=== PATIENT | male | born 1975 | race Caucasian/White ===

== ENCOUNTER 2020-01-06 17:11 | Outpatient (CLI) | payer OTHER, SELFPAY ==
[2020-01-06 18:06] LABS: Alanine Aminotransferase 12 U/L (4-50); Albumin Level 4.3 g/dL (3.5-5.1); Alkaline Phosphatase 113 U/L (38-126); Aspartate Amino Transferase 18 U/L (17-59); Bilirubin,Total 0.5 mg/dL (0.2-1.3); Blood Urea Nitrogen 13 mg/dL (9-20); Calcium 8.7 mg/dL (8.4-10.2); Carbon Dioxide 26 mmol/L (22-30); Chloride 101 mmol/L (98-107); Estimated Glomerular Filt Rate > 60; Glucose 236 mg/dL (75-110); Potassium 4.3 mmol/L (3.4-5.0); Sodium 136 mmol/L (137-145)
== END 2020-01-06 17:12 | disposition home or self-care (01) ==
PROVIDERS: PCP Family Medicine; Visit Provider Family Medicine
DX: R73.01 Impaired fasting glucose (principal); I10 Essential (primary) hypertension
CPT/HCPCS: 36415; 80053; 83036

== ENCOUNTER 2020-04-20 14:30 | Outpatient (RCR) | payer OTHER, SELFPAY ==
[2020-02-17 10:29] VITALS: BMI 34.4
== END 2020-04-28 10:45 | disposition home or self-care (01) ==
LOC: ANHDMC 14:30
PROVIDERS: PCP Family Medicine; Visit Provider Family Medicine
DX: E11.65 Type 2 diabetes mellitus with hyperglycemia (principal); Z71.3 Dietary counseling and surveillance; Z71.89 Other specified counseling
CPT/HCPCS: 97802; G0108

== ENCOUNTER 2020-08-15 11:23 | Outpatient (CLI) | payer OTHER, SELFPAY ==
[2020-08-15 11:52] LABS: Hemoglobin A1C 5.4 % (<5.7)
[2020-08-15 11:53] LABS: Alanine Aminotransferase 9 U/L (4-50); Albumin Level 4.2 g/dL (3.5-5.1); Alkaline Phosphatase 88 U/L (38-126); Anion Gap 6 mmol/L (8-16); Aspartate Amino Transferase 16 U/L (17-59); Bilirubin,Total 0.6 mg/dL (0.2-1.3); Blood Urea Nitrogen 12 mg/dL (9-20); Calcium 9.3 mg/dL (8.4-10.2); Carbon Dioxide 31 mmol/L (22-30); Chloride 104 mmol/L (98-107); Estimated Glomerular Filt Rate > 60; Glucose 143 mg/dL (75-110); Potassium 4.6 mmol/L (3.4-5.0); Sodium 141 mmol/L (137-145)
== END 2020-08-15 11:24 | disposition home or self-care (01) ==
LOC: ANHLAB 11:24
PROVIDERS: PCP Family Medicine; Visit Provider Family Medicine
DX: E11.9 Type 2 diabetes mellitus without complications (principal); I10 Essential (primary) hypertension
CPT/HCPCS: 36415; 80053; 83036

== ENCOUNTER 2021-05-09 16:04 | Outpatient (CLI) | payer OTHER, SELFPAY ==
[2021-05-09 16:42] LABS: Basophils Absolute Auto 0.1 K/mm3 (0.0-0.1); Basophils Percent Auto 0.6 % (0.2-1.2); Eosinophils Absolute Auto 0.1 K/mm3 (0-0.3); Eosinophils Percent Auto 0.6 % (0-4.4); Hematocrit 49.6 % (42.0-52.0); Hemoglobin 17.1 g/dL (14.0-18.0); Immature Granulocyte Absolute 0.03 K/mm3 (0.00-0.031); Immature Granulocyte Percent A 0.3 % (0-0.5); Lymphocytes Absolute Auto 3.06 K/mm3 (0.9-3.2); Lymphocytes Percent Auto 29.4 % (18.3-44.2); Mean Corpuscular HGB Conc 34.5 g/dl (32-36); Mean Corpuscular Hemoglobin 32.4 pg (26-34); Mean Corpuscular Volume 94.1 fl (80-100); Mean Platelet Volume 10.2 fl (7.4-10.4); Monocytes Absolute Auto 0.5 K/mm3 (0.1-0.6); Monocytes Percent Auto 4.6 % (2.6-8.5); Neutrophils Absolute Auto 6.7 K/mm3 (1.3-6.7); Neutrophils Percent Auto 64.5 % (45.5-73.1); Platelet Count Result 187 k/mm3 (150-375); Red Blood Count 5.27 M/mm3 (4.6-6.20); Red Cell Distribution Width 12.6 % (11.5-14.5); White Blood Count 10.4 K/mm3 (4.5-10.0)
[2021-05-09 17:10] LABS: Alanine Aminotransferase 13 U/L (4-50); Albumin Level 4.7 g/dL (3.5-5.1); Alkaline Phosphatase 102 U/L (38-126); Anion Gap 10 mmol/L (8-16); Aspartate Amino Transferase 21 U/L (17-59); Bilirubin,Total 0.7 mg/dL (0.2-1.3); Blood Urea Nitrogen 12 mg/dL (9-20); Calcium 9.1 mg/dL (8.4-10.2); Carbon Dioxide 24 mmol/L (22-30); Chloride 105 mmol/L (98-107); Cholesterol 179 mg/dL (0-200); Estimated Glomerular Filt Rate > 60; Glucose 140 mg/dL (65-110); HDL Direct 30 mg/dL; Potassium 4.2 mmol/L (3.4-5.0); Sodium 139 mmol/L (137-145); Triglycerides 371 mg/dL (<150); Uric Acid 5.2 mg/dL (3.5-8.5)
[2021-05-09 17:21] LABS: LDL Cholesterol Direct 84 mg/dL
[2021-05-09 17:23] LABS: Hemoglobin A1C 7.2 % (<5.7)
[2021-05-09 17:42] LABS: Creatinine Urine 112.9 mg/dL
[2021-05-09 18:09] LABS: MALB Creatinine Ratio 5.3 mg/g (0-30); Microalbumin Urine Random < 6.0 mg/L (0-16.7)
== END 2021-05-09 16:05 | disposition home or self-care (01) ==
PROVIDERS: PCP Family Medicine; Visit Provider Family Medicine
DX: E11.9 Type 2 diabetes mellitus without complications (principal); I10 Essential (primary) hypertension; E78.2 Mixed hyperlipidemia; E79.0 Hyperuricemia without signs of inflammatory arthritis and tophaceous disease
CPT/HCPCS: 36415; 80053; 80061; 82043; 83036; 84550; 85025

== ENCOUNTER 2021-08-17 17:25 | Outpatient (CLI) | payer OTHER, SELFPAY ==
[2021-08-17 17:59] LABS: Hemoglobin A1C 7.2 % (<5.7)
[2021-08-17 18:27] LABS: Alanine Aminotransferase 18 U/L (4-50); Albumin Level 4.4 g/dL (3.5-5.1); Alkaline Phosphatase 114 U/L (38-126); Anion Gap 11 mmol/L (8-16); Aspartate Amino Transferase 25 U/L (17-59); Bilirubin,Total 0.5 mg/dL (0.2-1.3); Blood Urea Nitrogen 12 mg/dL (9-20); Calcium 8.9 mg/dL (8.4-10.2); Carbon Dioxide 24 mmol/L (22-30); Chloride 104 mmol/L (98-107); Estimated Glomerular Filt Rate > 60; Glucose 161 mg/dL (65-110); Potassium 4.4 mmol/L (3.4-5.0); Sodium 139 mmol/L (137-145)
[2021-08-25 09:17] LABS: Testosterone Free 64.2 pg/mL (35.0-155.0); Testosterone Total 247 ng/dL (250-1100)
== END 2021-08-17 17:26 | disposition home or self-care (01) ==
LOC: ANHLAB 17:27
PROVIDERS: PCP Family Medicine; Visit Provider Family Medicine
DX: R53.83 Other fatigue (principal); E11.9 Type 2 diabetes mellitus without complications; I10 Essential (primary) hypertension
CPT/HCPCS: 36415; 80053; 83036; 84402; 84403

== ENCOUNTER → 2021-08-30 01:56 | Outpatient (CLI) | payer OTHER, SELFPAY ==
[2021-08-30 21:12] LABS: SARS-CoV-2 RNA PCR Negative
== END ==
PROVIDERS: PCP Family Medicine; Visit Provider Nurse Practitioner Gerontology
DX: Z20.822 Contact with and (suspected) exposure to COVID-19 (principal)
CPT/HCPCS: C9803; U0003; U0005

== ENCOUNTER 2021-11-17 07:57 | Outpatient (CLI) | payer OTHER, SELFPAY ==
[2021-11-17 08:36] LABS: Basophils Absolute Auto 0.1 K/mm3 (0.0-0.1); Basophils Percent Auto 0.6 % (0.2-1.2); Eosinophils Percent Auto 0.5 % (0-4.4); Hematocrit 50.1 % (42.0-52.0); Hemoglobin 16.8 g/dL (14.0-18.0); Immature Granulocyte Absolute 0.03 K/mm3 (0.00-0.031); Immature Granulocyte Percent A 0.4 % (0-0.5); Lymphocytes Absolute Auto 2.18 K/mm3 (0.9-3.2); Lymphocytes Percent Auto 27.2 % (18.3-44.2); Mean Corpuscular HGB Conc 33.5 g/dl (32-36); Mean Corpuscular Hemoglobin 31.3 pg (26-34); Mean Corpuscular Volume 93.5 fl (80-100); Mean Platelet Volume 10.4 fl (7.4-10.4); Monocytes Absolute Auto 0.4 K/mm3 (0.1-0.6); Monocytes Percent Auto 5.2 % (2.6-8.5); Neutrophils Absolute Auto 5.3 K/mm3 (1.3-6.7); Neutrophils Percent Auto 66.1 % (45.5-73.1); Platelet Count Result 176 k/mm3 (150-375); Red Blood Count 5.36 M/mm3 (4.6-6.20); Red Cell Distribution Width 12.6 % (11.5-14.5)
[2021-11-17 08:49] LABS: Alanine Aminotransferase 12 U/L (4-50); Albumin Level 4.1 g/dL (3.5-5.1); Alkaline Phosphatase 103 U/L (38-126); Anion Gap 7 mmol/L (8-16); Aspartate Amino Transferase 19 U/L (17-59); Bilirubin,Total 0.7 mg/dL (0.2-1.3); Blood Urea Nitrogen 9 mg/dL (9-20); Calcium 8.4 mg/dL (8.4-10.2); Carbon Dioxide 25 mmol/L (22-30); Chloride 106 mmol/L (98-107); Cholesterol 165 mg/dL (0-200); Estimated Glomerular Filt Rate > 60; Glucose 187 mg/dL (65-110); HDL Direct 26 mg/dL; Sodium 138 mmol/L (137-145); Triglycerides 272 mg/dL (<150)
[2021-11-17 08:59] LABS: LDL Cholesterol Direct 78 mg/dL
[2021-11-17 09:28] LABS: Creatinine Urine 261.2 mg/dL
[2021-11-17 09:33] LABS: MALB Creatinine Ratio 3.1 mg/g (0-30)
[2021-11-17 11:14] LABS: Hemoglobin A1C 7.4 % (<5.7)
== END 2021-11-17 07:58 | disposition home or self-care (01) ==
LOC: ANHLAB 07:58
PROVIDERS: PCP Family Medicine; Visit Provider Family Medicine
DX: E11.9 Type 2 diabetes mellitus without complications (principal); I10 Essential (primary) hypertension; E78.2 Mixed hyperlipidemia
CPT/HCPCS: 36415; 80053; 80061; 82043; 83036; 85025

== ENCOUNTER 2022-02-25 16:52 | Emergency (ER) | payer OTHER, SELFPAY ==
--- NOTE | ~2022-02-25 | XR_ITS ---
EXAMINATION: XR chest 2V Exam Date/Time: 02/25/2022 17:15 CDT HISTORY: sub-sternal chest pain, sob, dizziness x 2days. smoker. Comparison: None available. RESULT: Lines, tubes, and devices: None. Lungs and pleura: Clear. Cardiomediastinal silhouette: Normal. Other: No acute osseous or upper abdominal finding. IMPRESSION: No acute cardiopulmonary process. Reviewed, dictated and finalized at location K.
--- NOTE | 2022-02-25 16:53 | ECG_ITS ---
Measurements Intervals [place] Rate: 100 P: 21 MS: 144 QRS: -1 QRSD: 96 T: 44 QT: 342 QTc: 442 Interpretive Statements SINUS TACHYCARDIA BASELINE WANDER- V4-V6 BORDERLINE ECG Electronically Signed On 02-25-2022 18:55:05 CDT by Gilles Killian D.O.
[2022-02-25 16:54] VITALS: BP 131/74; PULSE 96; RESP 18; TEMP 37; O2SAT 97
[2022-02-25 17:06] LABS: Basophils Absolute Auto 0.1 K/mm3 (0.0-0.1); Basophils Percent Auto 0.5 % (0.2-1.2); Eosinophils Percent Auto 0.4 % (0-4.4); Hematocrit 51.7 % (42.0-52.0); Hemoglobin 17.4 g/dL (14.0-18.0); Immature Granulocyte Absolute 0.04 K/mm3 (0.00-0.031); Immature Granulocyte Percent A 0.4 % (0-0.5); Lymphocytes Absolute Auto 2.84 K/mm3 (0.9-3.2); Mean Corpuscular HGB Conc 33.7 g/dl (32-36); Mean Corpuscular Hemoglobin 31.8 pg (26-34); Mean Corpuscular Volume 94.3 fl (80-100); Mean Platelet Volume 9.7 fl (7.4-10.4); Monocytes Absolute Auto 0.5 K/mm3 (0.1-0.6); Monocytes Percent Auto 4.6 % (2.6-8.5); Neutrophils Absolute Auto 7.9 K/mm3 (1.3-6.7); Neutrophils Percent Auto 69.1 % (45.5-73.1); Platelet Count Result 207 k/mm3 (150-375); Red Blood Count 5.48 M/mm3 (4.6-6.20); White Blood Count 11.4 K/mm3 (4.5-10.0)
[2022-02-25 17:16] LABS: Alanine Aminotransferase 12 U/L (6-50); Albumin Level 4.7 g/dL (3.5-5.1); Alkaline Phosphatase 112 U/L (38-126); Anion Gap 10 mmol/L (8-16); Aspartate Amino Transferase 19 U/L (17-59); Bilirubin,Total 1.1 mg/dL (0.2-1.3); Blood Urea Nitrogen 12 mg/dL (9-20); Calcium 8.9 mg/dL (8.4-10.2); Carbon Dioxide 24 mmol/L (22-30); Chloride 104 mmol/L (98-107); Estimated CRCL calculation 121 ml/min; Estimated Glomerular Filt Rate > 60; Glucose 148 mg/dL (65-110); Lipase 35 U/L (23-300); Potassium 3.9 mmol/L (3.4-5.0); Sodium 138 mmol/L (137-145)
[2022-02-25 17:20] LABS: Prothrombin Time 12.9 Seconds (11.1-14.7)
[2022-02-25 17:21] LABS: Partial Thromboplastin Time 41.4 SECONDS (22.3-36.8)
[2022-02-25 17:27] LABS: Troponin I < 0.012 ng/mL (0.000-0.034)
[2022-02-25 18:23] VITALS: PULSE 83
[2022-02-25 18:38] VITALS: BP 111/75; PULSE 77; RESP 19; O2SAT 98
[2022-02-25 19:20] VITALS: BP 112/77; PULSE 88; RESP 14; O2SAT 96
--- NOTE | 2022-02-25 19:20 | PC.NURSE ---
Assumed care of pt at this time. pt alert and upright on stretcher, updated on POC.
--- NOTE | 2022-02-25 19:41 | ED.GENADULT ---
HPI - General Adult General Chief complaint: Chest Pain Stated complaint: Indigestion, dizziness, cp Time Seen by Provider: 02/25/22 19:13 History of Present Illness HPI narrative: Patient is a 46-year-old gentleman who presents the emergency department with chief complaint of chest pain. Patient reports that Friday he was out working in the yard move a lot of tree limbs and other brush and reported that he started having discomfort in his chest afterwards. Patient states the pain has been pretty well constant since Friday and reports that has had no shortness of breath denies diaphoresis. Patient states he has tried Tums and Rolaids without relief patient reports he has history of diabetes and reports he smokes cigarettes. Patient reports no prior history of cardiac disease. Related Data Allergies Allergy/AdvReac Type Severity Reaction Status Date / Time exenatide [From Bydureon] AdvReac pain Verified 02/25/22 18:25 Review of Systems Review of Systems: A 10 system review of systems was completed on the patient and is negative except for what is stated in the HPI. Nursing and ancillary documentation was reviewed. [facility] Past Medical History Medical History Dry skin dermatitis Elevated BP without diagnosis of hypertension Elevated fasting glucose Elevated hematocrit Elevated random blood glucose level Lipid screening Lipoma of extremity Low HDL (under 40) Mixed hyperlipidemia New onset type 2 diabetes mellitus Right shoulder pain Rotator cuff arthropathy of right shoulder Rotator cuff tendonitis Smoker Thyroid disorder screen Tobacco consumption Surgical History Surgical History History of surgery on wrist Family History Family History Father Multiple myeloma Mother Pancreatic cancer Cerebrovascular accident Hypertension Social History Social History Social History: Single Smoking packs per day: 1 Smoking cigarettes per day: 20.0 Years smoked: 30 Smoking pack-years: 30.00 Smoking status: Current every day smoker Tobacco type: cigarettes Second hand tobacco smoke exposure: No Alcohol intake: never Substance use: never Substance use type: does not use 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 HEAD: Normocephalic, atraumatic. EYES: PERRLA and EOMI. ENT: Nares clear, no rhinorrhea or epistaxis. Mucous membranes moist. NECK: Supple. CHEST: Clear to auscultation. No respiratory distress. HEART: Regular rate and rhythm. No murmur heard. Normal peripheral pulses. ABDOMEN: Soft, nontender, nondistended, normal active bowel sounds. EXTREMITIES: Normal range of motion. No edema. SKIN: Warm, dry, no rash. NEURO: No focal deficits. Alert and oriented x3. PSYCH: Normal mood and affect. Course Course Emergency Course: EKG is sinus rhythm rate of [address] elevation or ST depression Vital Signs Vital signs: Vital Signs Temperature 37.0 C 02/25/22 16:54 Pulse Rate 96 02/25/22 16:54 Respiratory Rate 18 02/25/22 16:54 Blood Pressure 131/74 02/25/22 16:54 Pulse Oximetry 97 02/25/22 16:54 Oxygen Delivery Room Air 02/25/22 16:54 Temperature 37.0 C 02/25/22 16:54 Pulse Rate 88 02/25/22 19:20 Respiratory Rate 14 02/25/22 19:20 Blood Pressure 112/77 02/25/22 19:20 Pulse Oximetry 96 02/25/22 19:20 Oxygen Delivery Room Air 02/25/22 16:54 Medical Decision Making Vital Signs Vital Signs: Vital Signs Temperature 37.0 C 02/25/22 16:54 Pulse Rate 96 02/25/22 16
[2022-02-25] MEDS: BELLADONNA ALK/PHENOB ELIX 10 ML, MAG HYDROX/ALUMINUM HYD/SIMETH 30 ML, LIDOCAINE HCL 2... PO (20:09)
--- NOTE | 2022-02-25 20:19 | PC.NURSE ---
Per EDP, hold SL nitroglycerine. Pt rates pain 0/10.
[2022-02-25 20:35] LABS: Troponin I < 0.012 ng/mL (0.000-0.034)
[2022-02-25 21:09] VITALS: BP 122/76; PULSE 89; RESP 16; O2SAT 96
== END 2022-02-25 21:10 | disposition home or self-care (01) ==
PROVIDERS: Emergency Medicine; Emergency Provider Emergency Medicine; PCP Family Medicine
DX: R07.9 Chest pain, unspecified (principal); K29.70 Gastritis, unspecified, without bleeding; E78.2 Mixed hyperlipidemia; E11.9 Type 2 diabetes mellitus without complications; F17.210 Nicotine dependence, cigarettes, uncomplicated; Z79.899 Other long term (current) drug therapy
CPT/HCPCS: 36415; 71046; 80053; 83690; 84484; 85025; 85610; 85730; 93005; 99284; A9270

== ENCOUNTER 2022-05-24 16:55 | Outpatient (CLI) | payer OTHER, SELFPAY ==
[2022-05-24 17:27] LABS: Alanine Aminotransferase 14 U/L (6-50); Albumin Level 4.2 g/dL (3.5-5.1); Alkaline Phosphatase 102 U/L (38-126); Anion Gap 8 mmol/L (8-16); Aspartate Amino Transferase 18 U/L (17-59); Bilirubin,Total 0.5 mg/dL (0.2-1.3); Blood Urea Nitrogen 10 mg/dL (9-20); Calcium 8.6 mg/dL (8.4-10.2); Carbon Dioxide 23 mmol/L (22-30); Chloride 105 mmol/L (98-107); Estimated Glomerular Filt Rate > 60; Glucose 125 mg/dL (65-110); Sodium 136 mmol/L (137-145)
[2022-05-24 17:54] LABS: Hemoglobin A1C 7.7 % (<5.7)
== END 2022-05-24 16:56 | disposition home or self-care (01) ==
LOC: ANHLAB 16:56
PROVIDERS: PCP Family Medicine; Visit Provider Family Medicine
DX: E11.9 Type 2 diabetes mellitus without complications (principal); I10 Essential (primary) hypertension
CPT/HCPCS: 36415; 80053; 83036

== ENCOUNTER 2023-03-07 17:04 | Outpatient (CLI) | payer OTHER, SELFPAY ==
--- NOTE | ~2023-03-07 | XR_ITS ---
XR knee RT min 4V 03/07/2023 17:33 INDICATION: Juvenile osteochondrosis PROCEDURE: 4 views right knee COMPARISON: No prior studies for comparison. FINDINGS: Fracture, dislocation or subluxation is not identified. No significant joint effusion. The soft tissues appear within normal limits. No foreign bodies are identified. IMPRESSION: 1: NO ACUTE BONE OR JOINT ABNORMALITY IDENTIFIED. Reviewed, dictated and finalized at location A.
[2023-03-07 17:33] LABS: Hemoglobin A1C 8.1 % (<5.7)
[2023-03-07 17:39] LABS: Alanine Aminotransferase 13 U/L (6-50); Albumin Level 4.3 g/dL (3.5-5.1); Alkaline Phosphatase 114 U/L (38-126); Anion Gap 6 mmol/L (8-16); Aspartate Amino Transferase 16 U/L (17-59); Bilirubin,Total 0.7 mg/dL (0.2-1.3); Blood Urea Nitrogen 11 mg/dL (9-20); Calcium 8.9 mg/dL (8.4-10.2); Carbon Dioxide 23 mmol/L (22-30); Chloride 105 mmol/L (98-107); Cholesterol 195 mg/dL (0-200); Estimated Glomerular Filt Rate > 60; Glucose 175 mg/dL (65-110); HDL Direct 36 mg/dL; Potassium 4.1 mmol/L (3.4-5.0); Sodium 134 mmol/L (137-145); Triglycerides 375 mg/dL (<150)
[2023-03-07 17:48] LABS: Microalbumin Urine Random 6.1 mg/L (0-16.7)
[2023-03-07 17:50] LABS: Creatinine Urine 140.2 mg/dL; MALB Creatinine Ratio 4.4 mg/g (0-30)
[2023-03-07 17:52] LABS: LDL Cholesterol Direct 84 mg/dL
== END 2023-03-07 17:05 | disposition home or self-care (01) ==
PROVIDERS: PCP Family Medicine; Visit Provider Physician Assistant
DX: I10 Essential (primary) hypertension (principal); E78.2 Mixed hyperlipidemia; E11.65 Type 2 diabetes mellitus with hyperglycemia; E11.9 Type 2 diabetes mellitus without complications; M92.529 Juvenile osteochondrosis of tibia tubercle, unspecified leg
CPT/HCPCS: 36415; 73564; 80053; 80061; 82043; 83036

== ENCOUNTER 2023-06-25 16:15 | Outpatient (RCR) | payer OTHER, SELFPAY ==
--- NOTE | 2023-06-03 16:07 | OPREHPOC ---
Outpatient Therapy Plan of Care This is a Multidisciplinary Plan of Care that may contain components documented by all disciplines (PT, OT, and ST.) PT Problem 1 PT Problem #1 Knowledge Deficit PT Goal 1 Goal 1* indep with HEP PT Problem 2 PT Problem #2 Impaired Strength PT Goal 1 Goal increase strength of R hip and knee: 1* pt perform 20 reps of supine SLR 2* single leg standing x 20 seconds with good stability 3* improve self assessment LE functional scale to 24% limitation in activity level PT Problem 3 PT Problem #3 Pain PT Goal 1 Goal 1 * decrease pain to 4/10 at worst 2* pt report after sitting 15 min, able to get up without pain increase
--- NOTE | 2023-06-03 16:07 | PTOPEVAL1 ---
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 Reported Pain Level Pain Score Self Report Additional Pain Score Comments pain range 2-7/10 in past week; stiff; sometimes swell points to distal patellar tendon as area of pain increase pain with sitting/ still 10-15 min and then go to move knee; walk up hill or on stairs decrease pain: constantly move knee have not used ice- instruct on PRN use 10-15 min on knee for swelling and irritation reduction walking is OK on level ground have used hinged knee brace in the past and it helped some; Assessment PT Clinical Summary Gilberto has the diagnosis of R patellar tendonitis. 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 With the evaluation, he has good flexibility of his hips and knees, with pain increase both flexion and extension end ranges of motion; weakness of hip and knee, tenderness over distal patellar tendon; Skilled PT services are indicated for modalities to decrease pain and irritation to knee; therapeutic exercises to increase hip and knee strength with education for HEP and pain control. Plan of Care Interventions Electrical Stimulation,Hot Pack/Cold Pack,Manual Therapy,Neuro Re-education,Patient Education,Therapeutic Exercise,Ultrasound,Other Other Interventions taping PT Services Indicated Yes Treatment Frequency and 1-2x/wk for 4
--- NOTE | 2023-06-30 13:32 | PCPTNOTE ---
pt called and canceled today's reeval, was not able to get away from work, Rescheduled appt.
--- NOTE | 2023-07-17 12:53 | PCPTNOTE ---
Mr. Islas cancelled his appointment today due to schedule conflict. Stanton Sandoval, MPT
--- NOTE | 2023-07-28 09:57 | PTOPDC ---
Assessment and note entered by Yasmeen Swift, PT Discharge Information Assessment Status Discharge - Pt Not Present Diagnosis R patellar tendonitis Onset about 1 year Assessment PT Clinical Summary PHYSICAL THERAPY DISCHARGE Gilberto has received 6 PT sessions, from May 12 to Jun 25 for the diagnosis of R patellar tendonitis. He called and canceled 2 appointments, due to work. He will be discharged at this time. The goals were not addressed. Plan of Care PT Services Indicated No
== END 2023-07-28 11:55 | disposition home or self-care (01) ==
LOC: ANHPT 16:15
PROVIDERS: PCP Family Medicine; Visit Provider Orthopaedic Surgery
DX: M76.51 Patellar tendinitis, right knee (principal)
CPT/HCPCS: 97014; 97110; 97112; 97161; 97530; G0283

== ENCOUNTER 2024-07-20 09:23 | Outpatient (CLI) | payer OTHER, SELFPAY ==
[2024-07-20 09:47] LABS: Basophils Percent Auto 0.3 % (0.2-1.2); Eosinophils Percent Auto 0.3 % (0-4.4); Hematocrit 48.2 % (42.0-52.0); Hemoglobin 16.3 g/dL (14.0-18.0); Immature Granulocyte Absolute 0.05 K/mm3 (0.00-0.031); Immature Granulocyte Percent A 0.4 % (0-0.5); Lymphocytes Absolute Auto 2.44 K/mm3 (0.9-3.2); Mean Corpuscular HGB Conc 33.8 g/dl (32-36); Mean Corpuscular Hemoglobin 30.6 pg (26-34); Mean Corpuscular Volume 90.4 fl (80-100); Mean Platelet Volume 10.1 fl (7.4-10.4); Monocytes Absolute Auto 0.6 K/mm3 (0.1-0.6); Monocytes Percent Auto 5.2 % (2.6-8.5); Neutrophils Percent Auto 73.8 % (45.5-73.1); Platelet Count Result 185 k/mm3 (150-375); Red Blood Count 5.33 M/mm3 (4.6-6.20); Red Cell Distribution Width 12.7 % (11.5-14.5); White Blood Count 12.2 K/mm3 (4.5-10.0)
[2024-07-20 10:34] LABS: Alanine Aminotransferase 8 U/L (6-50); Albumin Level 3.9 g/dL (3.5-5.1); Alkaline Phosphatase 128 U/L (38-126); Anion Gap 4 mmol/L (4-12); Aspartate Amino Transferase 15 U/L (17-59); Bilirubin,Total 0.7 mg/dL (0.2-1.3); Blood Urea Nitrogen 10 mg/dL (9-20); Calcium 8.9 mg/dL (8.4-10.2); Carbon Dioxide 29 mmol/L (22-30); Chloride 101 mmol/L (98-107); Estimated Glomerular Filt Rate > 60; Glucose 355 mg/dL (65-110); Potassium 4.3 mmol/L (3.4-5.0); Sodium 134 mmol/L (137-145)
[2024-07-20 13:44] LABS: Hemoglobin A1C 10.3 % (<5.7)
== END 2024-07-20 09:24 | disposition home or self-care (01) ==
PROVIDERS: PCP Family Medicine; Visit Provider Physician Assistant
DX: E78.2 Mixed hyperlipidemia (principal); E11.9 Type 2 diabetes mellitus without complications; Z72.0 Tobacco use
CPT/HCPCS: 36415; 80053; 83036; 85025

== ENCOUNTER 2024-10-30 09:01 | Outpatient (CLI) | payer OTHER, SELFPAY ==
--- OUTSIDE RECORDS SUMMARY | 2024-10-30 09:05 | XMS_ITS | Clinical Summary ---
Author Organization [facility] Address [address] [place] [address] Care Team Providers Care Millinery Designer Name Role Phone Jamilah Garcia MD Primary Care Provider [phone] Allergies No known active allergies Medications No known medications Social History Tobacco Use Types Packs/Day Years Used Date Smoking Tobacco: Every Day Cigarettes 1 38.2 Started: 1986 Smokeless Tobacco: Never Tobacco Cessation:Ready to Q uit: Not Asked; Counseling Given: Not Answered Alcohol Use Standard Drinks/Week Comments Not Currently 0 (1 standard drink = 0.6 oz pur e alcohol) Sex and Gender Information Value Date Recorded Sex Assigned at Not on file Legal Sex Male 5:21 PM CDT Gender Identity Not on file Sexual Orientation Not on file Last Filed Vital Signs Vital Sign Reading Time Taken Comments Blood Pressure 132/70 07/20/2024 6:07 AM SERVICES ENGINEER Pulse 80 07/20/2024 6:07 AM SERVICES ENGINEER Temperature 36.7 C (98 F) 07/20/2024 6:07 AM SERVICES ENGINEER Respiratory Rate 18 07/20/2024 6:07 AM SERVICES ENGINEER Oxygen Saturation 97% 07/20/2024 6:07 AM SERVICES ENGINEER Inhaled Oxygen Concentration - - Weight 120.2 kg (265 lb) 07/20/2024 4:50 AM SERVICES ENGINEER Height 190.5 cm (6' 3 ) 07/20/2024 4:50 AM SERVICES ENGINEER Body Mass Index 33.12 07/20/2024 4:50 AM SERVICES ENGINEER Plan of Treatment Health Maintenance Due Date Last Done Comments Colorectal Cancer Screening Colonoscopy (10 Years) 1973 Annual Physical 1976 Pneumococcal Vaccine: Pediat rics (0 to 5 Years) and At-Risk Patients (6 to 64 Years) (1 of 2 - PCV) 1979 Hepatitis C 1991 DTaP, Tdap and Td Vaccines ( 1 - Tdap) 1992 Hepatitis B Vaccines (1 of 3 - 19+ 3-dose series) 1992 Lung Cancer Screening 2023 Zoster Vaccines (1 of 2) 2023 COVID-19 Vaccine (1 - 2023-2 5 season) 2024 Influenza Adult (#1) 2024 Meningococcal B Vaccine Aged Out No l onger eligible based on patient's age to complete this topic Meningococcal Vaccine Aged Out No melanie mimi eligible based on patient's age to complete this topic RSV Immunizations Under 20 Months Aged Out No longer eligible based on patient's age to complete this topic Insurance Care Teams Millinery Designer Relationship Specialty Start Date End Date Jamilah Garcia MD [id number] [facility] [address] [place] [address] PCP - General FAMILY PRACTICE 07/20/24
[2024-10-30 09:57] LABS: Hemoglobin A1C 9.1 % (<5.7)
[2024-10-30 10:11] LABS: Alanine Aminotransferase 15 U/L (6-50); Albumin Level 4.6 g/dL (3.5-5.1); Alkaline Phosphatase 129 U/L (38-126); Anion Gap 15 mmol/L (4-12); Aspartate Amino Transferase 18 U/L (17-59); Bilirubin,Total 1.5 mg/dL (0.2-1.3); Blood Urea Nitrogen 19 mg/dL (9-20); Calcium 9.1 mg/dL (8.4-10.2); Carbon Dioxide 22 mmol/L (22-30); Chloride 100 mmol/L (98-107); Estimated Glomerular Filt Rate > 60; Glucose 162 mg/dL (65-110); Potassium 4.4 mmol/L (3.4-5.0); Sodium 137 mmol/L (137-145)
== END 2024-10-30 09:02 | disposition home or self-care (01) ==
LOC: ANHLAB 09:03
PROVIDERS: PCP Family Medicine; Visit Provider Physician Assistant
DX: E11.65 Type 2 diabetes mellitus with hyperglycemia (principal)
CPT/HCPCS: 36415; 80053; 83036